=== PATIENT | male | born 1960 | race Two or more races ===

== ENCOUNTER 2019-06-24 01:29 | Inpatient (IN) | payer MEDICAID ==
[~2019-06-24] VITALS: Ht 177.8 cm; Wt 90.7 kg
--- NOTE | 2019-06-24 02:11 | NUR ---
called to malachi no answer
--- NOTE | 2019-06-24 03:05 | NUR ---
TO ER BED 7 AMBULATORY C/O BILAT HAND PAIN, R KNEE, L ELBOW, NECK & X2 DAYS. R 3RD DIGIT OPEN LESSION. PT AAOX4 VIOLETA CUTE DISTRESS NOTED, RESP EVEN AND UNLABORED. PENDING ER MD GARCIA.
--- NOTE | 2019-06-24 03:06 | NUR ---
ER MD AT BEDSIDE TO EVAL PT WITH ORDERS RECEIVED. WILL CARRY OUT ORDERS.
[2019-06-24] MEDS ORDERED: VANCOMYCIN 1 GM VIAL ONE (03:14)
[2019-06-24] MEDS ORDERED: VANCOMYCIN 1 GM in IV D5W 250 ML IV ONE (03:30)
--- NOTE | 2019-06-24 03:30 | NUR ---
BLOOD DRAWN AND SENT TO LAB.
[2019-06-24 03:46] LABS: BASOPHILS # (AUTO) 0.1 /CMM (0.0-0.2); BASOPHILS % (AUTO) 1.1 % (0.0-2.0); EOSINOPHILS % (AUTO) 2.8 % (0.0-6.0); HEMATOCRIT 42 % (39-51); LYMPHOCYTES # (AUTO) 2.9 /CMM (0.8-4.8); LYMPHOCYTES % (AUTO) 32.2 % (20.0-44.0); MEAN CORPUSCULAR HGB CONC 34 g/dl (31.0-36.0); MEAN CORPUSCULAR VOLUME 83 fL (80-96); MONOCYTES # (AUTO) 0.8 /CMM (0.1-1.30); MONOCYTES % (AUTO) 8.3 % (2.0-12.0); NEUTROPHILS # (AUTO) 5.1 /CMM (1.8-8.9); NEUTROPHILS % (AUTO) 55.6 % (43.0-81.0); PLATELET COUNT (AUTO) 243 /CMM (150-450); RED BLOOD CELL COUNT(AUTO) 4.99 MIL/uL (4.5-6.0); WHITE BLOOD COUNT (AUTO) 9.1 K/uL (4.3-11.0)
[2019-06-24 03:48] LABS: CALCIUM, SERUM 8.9 mg/dL (8.5-10.1); POTASSIUM 3.8 mmol/L (3.5-5.1)
--- NOTE | 2019-06-24 03:58 | NUR ---
M/S [phone]
--- NOTE | 2019-06-24 04:26 | NUR ---
REPORT GIVEN TO KEVYN KELSEY FOR CECILY
[2019-06-24] MEDS ORDERED: MAG HYDROX/AL HYDROX/SIMETH 30 ML UDC PO PRN (04:30)
[2019-06-24] MEDS ORDERED: MAGNESIUM HYDROXIDE 30 ML UDC PO PRN (04:30)
[2019-06-24] MEDS ORDERED: ONDANSETRON HCL/PF 4 MG/2 ML VIAL IVP PRN (04:30)
[2019-06-24] MEDS ORDERED: ACETAMINOPHEN 325 MG TABLET PO PRN (04:30)
[2019-06-24 04:35] VITALS: BP_SYST 130
--- NOTE | 2019-06-24 04:37 | NUR ---
PATIENT CAME FROM ER, A/O X4, VERY SLEEPY, AMBULATES TO THE BED FROM THE [facility], [facility]. NO COMPLAIN OF PAIN. NO SOB NOTED. V/S TAKEN AND RECORDED. AFEBRILE. WITH MULTIPLE WOUNDS AND GENERALIZED RASHES NOTED PHOTOS TAKEN AND ATTACHED TO THE CHART.
[2019-06-24 04:40] VITALS: BP 130/58
[2019-06-24] MEDS: IV 1/2NS 1000 ML 1,000 ML IV PRN ×2 (06:15→20:10)
[2019-06-24] MEDS ORDERED: FEE PK DOSING 1 MIN EA MC ONE (07:05)
[2019-06-24 07:30] VITALS: BP 130/80
--- NOTE | 2019-06-24 07:30 | NUR ---
RN OPENING NOTES RECEIVED PATIENT IN BED SLEEPING , AROUSES EASILY. A/OX3, ABLE TO MAKE NEEDS KNOWN. NOT IN ANY FORM OF DISTRESS. NO SOB. DENIED PAIN OR DISCOMFORT AT THIS TIME. IV ACCESS INTACT AND PATENT. KEPT PATIENT SAFE AND COMFORTABLE. BED IN LOW/LOCKED POSITION. SIDERAILS UPX2, CALL LIGHT IN REACH. WILL CONT TO MONITOR ACCORDINGLY.
[2019-06-24] MEDS: VANCOMYCIN 1.25 GM in IV D5W 250 ML IV SCH ×2 (12:29→20:06)
[2019-06-24] MEDS: HYDROCODONE/APAP 5/325MG 1 EACH TABLET PO PRN ×2 (18:26→22:18)
--- NOTE | 2019-06-24 19:34 | NUR ---
RN CLOSING NOTES PATIENT IN STABLE CONDITION. ALL NEEDS ATTENDED AND PROVIDED. ALL DUE MEDS GIVEN ORDERED. KEPT PATIENT SAFE AND COMFORTABLE. BED IN LOW/LOCKED POSITION, SIDERAILS UPX2. CALL LIGHT IN REACH. ENDORSED ACCORDINGLY.
[2019-06-24 20:00] VITALS: BP 110/66
[2019-06-24 20:31] VITALS: BP 110/66
--- NOTE | 2019-06-24 20:32 | NUR ---
MS RN OPENING NOTES: RECEIVED PATIENT AT 1900, RESTING IN BED, A/O X4. NO SOB NOTED. NO COMPLAIN OF PAIN. WITH RIGHT GROIN RASHES WITH FOUL ODOR, PHOTO TAKEN AND ATTACHED TO THE CHART. V/S TAKEN BY MEDICAL INSURANCE BILLER. RECORDED. AFEBRILE. CALL LIGHT WITHIN REACH. BED IN LOWEST AND LOCKED POSITION.
[2019-06-25] MEDS: VANCOMYCIN 1.25 GM in IV D5W 250 ML IV SCH (03:51)
--- NOTE | 2019-06-25 06:22 | NUR ---
MS RN CLOSING NOTES: PATIENT IN BED, ASLEEP. RESTED THROUGHOUT THE NIGHT. AMBULATORY. NO SOB NOTED. CALL LIGHT WITHIN REACH. BED IN LOWEST AND LOCKED POSITION.
--- NOTE | 2019-06-25 07:35 | NUR ---
MS/RN NOTE THE PATIENT IS RECEIVED IN BED. PATIENT IS ALERT AND ORIENTED X4. IN ROOM AIR AND DENIES SOB. RESPIRATION REGULAR AND UNLABORED. DENIES PAIN. THE PATIENT IS IN NO APPARENT DISTRESS. LFA G 22 PATENT AND 1/2NS INFUSING AT 75ML/HR AND NO S/S INFILTRATION NOTED. BED LOW AND LOCKED. SIDE RAILS UP X3. CALL LIGHT WITHIN REACH. WILL CONTINUE TO MONITOR.
[2019-06-25 08:00] VITALS: BP 103/58
[2019-06-25 08:13] LABS: BASOPHILS # (AUTO) 0.1 /CMM (0.0-0.2); EOSINOPHILS % (AUTO) 4.2 % (0.0-6.0); HEMATOCRIT 43 % (39-51); HEMOGLOBIN 14.9 g/dL (13.5-17.5); LYMPHOCYTES # (AUTO) 2.1 /CMM (0.8-4.8); LYMPHOCYTES % (AUTO) 33.8 % (20.0-44.0); MEAN CORPUSCULAR HGB CONC 35 g/dl (31.0-36.0); MEAN CORPUSCULAR VOLUME 82 fL (80-96); MONOCYTES # (AUTO) 0.5 /CMM (0.1-1.30); MONOCYTES % (AUTO) 8.4 % (2.0-12.0); NEUTROPHILS # (AUTO) 3.2 /CMM (1.8-8.9); NEUTROPHILS % (AUTO) 52.6 % (43.0-81.0); PLATELET COUNT (AUTO) 234 /CMM (150-450); RED BLOOD CELL COUNT(AUTO) 5.29 MIL/uL (4.5-6.0); WHITE BLOOD COUNT (AUTO) 6.1 K/uL (4.3-11.0)
[2019-06-25 08:31] LABS: ALBUMIN 3.1 g/dL (3.4-5.0); BILIRUBIN,TOTAL 0.7 mg/dL (0.2-1.0); CALCIUM, SERUM 8.8 mg/dL (8.5-10.1); CREATININE 0.8 mg/dL (0.6-1.3); MAGNESIUM 1.8 mg/dL (1.8-2.4); POTASSIUM 3.8 mmol/L (3.5-5.1)
[2019-06-25] MEDS: HYDROCODONE/APAP 5/325MG 1 EACH TABLET PO PRN (08:44)
--- NOTE | 2019-06-25 08:44 | NUR ---
MS/RN NOTE THE PATIENT COMPLAINED OF NECK PAIN 11/16. PRN NORCO 5/325 1 TAB PO GIVEN. WILL CONTINUE TO MONITOR.
--- NOTE | 2019-06-25 09:45 | NUR ---
MS/RN NOTE THE PATIENT VERBALIZED RELIEF FROM NECK PAIN RATING IT 0/10.
[2019-06-25] MEDS: HYDROCORTISONE 1% CREAM 28.35 GM TUBE TP SCH ×2 (11:21→17:00)
[2019-06-25] MEDS: NEOMY SULF/BACITRAC ZN/POLY 15 GM TUBE TP SCH (11:21)
[2019-06-25] MEDS: CLOTRIMAZOLE/BETAMETASONE DIPROPIONATE 15 GM TUBE TP SCH ×2 (12:38→17:02)
[2019-06-25 16:00] VITALS: BP 128/84
[2019-06-25] MEDS: COD LIVER OIL/ZINC OXIDE 120 GM TUBE TP SCH (17:00)
--- NOTE | 2019-06-25 18:48 | NUR ---
MS/RN NOTE THE PATIENT IS ALERT AND ORIENTED X4. IN ROOM AIR AND SATURATION IS AT 97%. DENIES SOB. RESPIRATION REGULAR AND UNLABORED. DENIES PAIN. LFA G 22 PATENT AND 1/2NS INFUSING AT 75ML/HR AND NO S/S INFILTRATION NOTED. BED LOW AND LOCKED. SIDE RAILS UP X2. CALL LIGHT WITHIN REACH. WILL ENDORSE TO COMPLETIONS MANAGER.
--- NOTE | 2019-06-25 19:40 | NUR ---
RN OPENING NOTES RECEIVED REPORT FROM DAYSHIFT RN. FOUND Pt AWAKE, RESTING IN BED, WATCHING TV. NO S/S OF ACUTE DISTRESS OR SOB NOTED. Pt IS A/OX4, VERBAL AND ABLE TO MAKE NEEDS KNOWN. IV ACCESS ON RFA #20G, IVF NS @75ML/HR. SAFETY MEASURES IN PLACE. BED LOW, LOCKED, HOB ELEVATED, SIDE RAILS UP, CALL LIGHT AND BEDSIDE TABLE WITHIN REACH. WILL CONTINUE TO MONITOR Pt's CONDITION AND SAFETY THROUGHOUT THE SHIFT.
[2019-06-25 20:37] VITALS: BP 111/73
[2019-06-25] MEDS: VANCOMYCIN 1 GM in IV D5W 250 ML IV SCH (21:00)
--- NOTE | 2019-06-25 22:00 | NUR ---
RN NOTES PREVIOUS HI RN VANESSA DID NOT LOG OUT OF MEDITECH DURING CHANGE OF SHIFT. MY LOG IN WINDOW WAS MINIMIZED WHEN PASSING MEDS AND DID NOT REALIZE THAT I WAS ON THE MEDITECH. ACCIDENTALLY PASSED MEDS UNDER NURSE's USERNAME. CORRECT MEDS WAS GIVEN TO CORRECT PATIENT. VANCO 1GM WAS ADMINISTERED TO [facility] @2100. VANCO TROUGH 18.
[2019-06-25] MEDS: IV 1/2NS 1000 ML 1,000 ML IV PRN (23:53)
[2019-06-26] MEDS: VANCOMYCIN 1 GM in IV D5W 250 ML IV SCH ×2 (03:56→13:23)
--- NOTE | 2019-06-26 07:05 | NUR ---
RN CLOSING NOTES NO SIGNIFICANT CHANGES IN Pt's CONDITION. Pt IS RESTING COMFORTABLY IN BED. NO S/S OF ACUTE DISTRESS OR SOB NOTED DURING THE NIGHT. ALL NEEDS MET AND ATTENDED TO. SAFETY MEASURES IN PLACE. WILL ENDORSE TO DAYSHIFT RN FOR Pt's CECILY.
[2019-06-26 08:00] VITALS: BP 121/58
[2019-06-26] MEDS: COD LIVER OIL/ZINC OXIDE 120 GM TUBE TP SCH (08:57)
[2019-06-26] MEDS: CLOTRIMAZOLE/BETAMETASONE DIPROPIONATE 15 GM TUBE TP SCH (08:57)
[2019-06-26] MEDS: NEOMY SULF/BACITRAC ZN/POLY 15 GM TUBE TP SCH (08:58)
[2019-06-26] MEDS: HYDROCORTISONE 1% CREAM 28.35 GM TUBE TP SCH (08:59)
--- NOTE | 2019-06-26 09:46 | NUR ---
WOUND CARE CONSULT WOUND CARE RECEIVED CONSULT FOR RIGHT HAND WOUNDS. WOUND CARE WILL DEFER CONSULT AND TREATMENT PLANS TO PLASTIC SURGEON/HAND SURGICAL TEAM WHO ARE CURRENTLY FOLLOWING THIS PATIENT. PATIENT WITH MASOOD AT 20, WILL SEE PRN.
--- NOTE | 2019-06-26 11:33 | NUR ---
Social service consult requested by for homelessness. Per chart review and MD notes, pt is 58-year-old male who presented to the emergency Department with several complaints. The patient states that he's had lesions all over the body. He states that they began 2 days ago. He states that the most significant one is on the right hand. PIPE INSPECTOR met with the pt. bedside. Pt is alert and oriented x 4. Pt's mood is euthymic. Pt is cooperative with PIPE INSPECTOR during the assessment. Pt states he has been living in his car, a [employer] [address]. Pt reports, he spoke to his dad yesterday and will go to stay with his dad in [place] for a few days. Pt has his car at [facility] and will need a TAP card to get there. Pt has a history of drug use but denies any current use. Pt. drinks alcohol 2 to 3 times per week and usually drinks beer. Pt denies any mental illness. Pt denies suicidal and homicidal ideations and visual/auditory hallucinations. Pt does not have an [facility] Form. [facility] offered the pt the form, pt declined. Pt declined all other resources. PIPE INSPECTOR provided pt with active listening and supportive counseling. No other social service needs are requested at this time. PIPE INSPECTOR is available, if needed.
[2019-06-26] MEDS ORDERED: NEOM15OI3 TP (11:39)
[2019-06-26] MEDS ORDERED: SULF1TAB48 PO (11:39)
[2019-06-26] MEDS ORDERED: CLOT15CR5 TP (11:39)
--- NOTE | 2019-06-26 13:13 | NUR ---
MS RN NOTES CALLED [facility] ON [address] READY FOR SUPERINTENDENT DISTRIBUTION. PATIENT MADE AWARE. AWAITING FOR IV VANCO TO BE DELIVERED FROM PHARMACY TO ADMINISTER BEFORE DISCHARGE.
--- NOTE | 2019-06-26 15:00 | NUR ---
MS RN NOTES PATIENT DISCHARGED HOME. DISCHARGE TEACHING PROVIDED, PATIENT VERBALIZED UNDERSTANDING. WOUND CARE TEACHING PROVIDED. ALSO TEACHING WAS PROVIDED BY [facility]. WOUND CARE SUPPLIED WERE PROVIDED. PATIENT VERBALIZED ALL DISCHARGE TEACHING. RETURN DEMONSTRATION PROVIDED BY PATIENT. PATIENT REFUSED PICTURES STATING IT WAS JUST TAKEN. MD AWARE OF ALL ABNORMAL LABS. ALL BELONGINGS ACCOUNTED FOR, BELONGING LIST SIGNED. TAP CARD PROVIDED TO PATIENT. PATIENT STATES HE LEFT HIS CAR ON [place] NEEDS TO TAKE THE BUS TO HIS CAR AND WILL STAY WITH HIS DAD. PERIPHERAL IV REMOVED WITH MINIMAL BLEEDING. PATIENT ESCORTED TO DOOR BY SALBADOR.
== END 2019-06-26 15:00 | disposition home or self-care (01) | DRG 364 ==
LOC: ER 01:32 → MED 04:13
PROVIDERS: ADMIT Registered Nurse; ATTEND Registered Nurse
PROC: 0JBJ0ZZ Excision of Right Hand Subcutaneous Tissue and Fascia, Open Approach (ICD-10-PCS; principal; 2019-06-25)
DX: L03.011 Cellulitis of right finger (principal); E66.9 Obesity, unspecified; L03.113 Cellulitis of right upper limb; E86.0 Dehydration; F12.90 Cannabis use, unspecified, uncomplicated; Z59.0 Homelessness; Z68.28 Body mass index [BMI] 28.0-28.9, adult; R73.9 Hyperglycemia, unspecified; S60.420A Blister (nonthermal) of right index finger, initial encounter; X58.XXXA Exposure to other specified factors, initial encounter; Y93.9 Activity, unspecified; Y92.89 Other specified places as the place of occurrence of the external cause; S60.422A Blister (nonthermal) of right middle finger, initial encounter; L08.9 Local infection of the skin and subcutaneous tissue, unspecified; L30.4 Erythema intertrigo; L40.9 Psoriasis, unspecified
CPT/HCPCS: 36415; 80048-TC; 80053-TC; 80061-TC; 80202-TC; 83605-TC; 83735-TC; 84100-TC; 85025-TC; 85730-TC; 87040-TC; 87081-TC; A6403; G0378; J3370; J3490; J7060